=== PATIENT | female | born 1965 | race American Indian/Alaskan Native ===

== ENCOUNTER 2019-05-20 23:11 | Emergency (ER) | payer SELFPAY ==
[2019-05-21 00:05] LABS: Basophils # (Auto) 0.1 K/mm3 (0.0-0.1); Basophils % (Auto) 1.2 % (0.0-1.8); Eosinophils # (Auto) 0.1 K/mm3 (0.0-0.4); Eosinophils % (Auto) 1.3 % (0.0-4.3); Hematocrit 46.1 % (30.3-42.9); Hemoglobin 16.3 gm/dl (10.1-14.3); Lymphocytes # (Auto) 2.2 K/mm3 (1.2-5.4); Lymphocytes % (Auto) 45.7 % (13.4-35.0); Mean Corpuscular HGB Conc 35 % (30-34); Mean Corpuscular Volume 102 fl (79-97); Monocytes # (Auto) 0.3 K/mm3 (0.0-0.8); Monocytes % (Auto) 5.5 % (0.0-7.3); Platelet Count 269 K/mm3 (140-440); Red Blood Count 4.51 M/mm3 (3.65-5.03); Red Cell Distribution Width 14.4 % (13.2-15.2)
[2019-05-21 00:20] LABS: Alanine Aminotransferase 8 units/L (7-56); BUN/Creatinine Ratio 10; Blood Urea Nitrogen 6 mg/dL (7-17); Calcium 9.5 mg/dL (8.4-10.2); Hemolysis Index 6
[2019-05-21] MEDS ORDERED: DICYCLOMINE 20 MG/2 ML INJ IM ONE (01:52)
[2019-05-21] MEDS ORDERED: FAMOTIDINE 20 MG/2 ML INJ IV ONE (01:52)
[2019-05-21] MEDS ORDERED: SODIUM CHLORIDE 0.9% 1000 ML 1,000 ML IV ONE (01:52)
[2019-05-21] MEDS ORDERED: ONDANSETRON 4 MG/2 ML INJ IV ONE (01:52)
--- NOTE | 2019-05-21 03:44 | Emergency Department Report ---
ED Abdominal Pain HPI - General Chief Complaint: Abdominal Pain Stated Complaint: ABD PAIN Time Seen by Provider: 05/21/19 01:43 Source: patient Mode of arrival: Ambulatory Limitations: No Limitations - History of Present Illness Initial Comments: Patient is a 53-year-old female with a past medical history of ulcers and borderline diabetes who is presenting with nausea vomiting and epigastric discomfort. Patient states that she is unable to keep anything the last 2 days but has had the abdominal discomfort for approximately a week. Patient states pain is consistent with her ulcers. She denies diarrhea fevers chills cough, congestion at this time. Severity scale (0 -10): 7 - Related Data Home Medications Medication Instructions Recorded Confirmed Last Taken Famotidine [Pepcid] 20 mg PO BID 03/20/16 03/20/16 Unknown Previous Rx's Medication Instructions Recorded Last Taken Type Metoprolol [Lopressor TAB] 50 mg PO BID #60 tablet 03/20/16 Unknown Rx Potassium Chloride [K-Dur] 20 meq PO QDAY #14 tablet 03/20/16 Unknown Rx Promethazine [Phenergan TAB] 25 mg PO Q6HR PRN #14 tab 03/20/16 Unknown Rx Dicyclomine [Bentyl] 20 mg PO QID #10 tablet 05/21/19 Unknown Rx Ondansetron [Zofran Odt] 4 mg PO Q8HR #10 tab.rapdis 05/21/19 Unknown Rx Pantoprazole [Protonix] 40 mg PO QDAY #30 tablet 05/21/19 Unknown Rx traMADol [Ultram] 50 mg PO Q6HR PRN #12 tablet 05/21/19 Unknown Rx Allergies Allergy/AdvReac Type Severity Reaction Status Date / Time Penicillins Allergy Angioedema Verified 03/20/16 01:01 Sulfa (Sulfonamide Allergy Angioedema Verified 03/20/16 01:01 Antibiotics) ED Review of Systems ROS: Stated complaint: ABD PAIN Other details as noted in HPI Comment: All other systems reviewed and negative ED Past Medical Hx - Past Medical History Previous Medical History?: Yes Hx Diabetes: Yes (Borderline) Hx GERD: Yes Additional medical history: PUD, Esophageal Atresia - Surgical History Past Surgical History?: Yes Additional Surgical History: Esophageal Atresia Repair - Social History Smoking Status: Current Every Day Smoker Substance Use Type: Alcohol, Marijuana - Medications Home Medications: Home Medications Medication Instructions Recorded Confirmed Last Taken Type Famotidine [Pepcid] 20 mg PO BID 03/20/16 03/20/16 Unknown History Metoprolol [Lopressor TAB] 50 mg PO BID #60 tablet 03/20/16 Unknown Rx Potassium Chloride [K-Dur] 20 meq PO QDAY #14 tablet 03/20/16 Unknown Rx Promethazine [Phenergan TAB] 25 mg PO Q6HR PRN #14 tab 03/20/16 Unknown Rx Dicyclomine [Bentyl] 20 mg PO QID #10 tablet 05/21/19 Unknown Rx Ondansetron [Zofran Odt] 4 mg PO Q8HR #10 tab.rapdis 05/21/19 Unknown Rx Pantoprazole [Protonix] 40 mg PO QDAY #30 tablet 05/21/19 Unknown Rx traMADol [Ultram] 50 mg PO Q6HR PRN #12 tablet 05/21/19 Unknown Rx ED Physical Exam - General Limitations: No Limitations General appearance: alert, in no apparent distress - Head Head exam: Present: atraumatic, normocephalic - Eye Eye exam: Present: normal appearance - ENT ENT exam: Present: mucous membranes moist - Neck Neck exam: Present: normal inspection - Respiratory Respiratory exam: Present: normal lung sounds bilaterally. Absent: respiratory distress, wheezes, rales, rhonchi - Cardiovascular Cardiovascular Exam: Present: regular rate, normal rhythm. Absent: systolic murmur, diastolic murmur, rubs, gallop - GI/Abdominal GI/Abdominal exam: Present: soft, tenderness (epigastric), normal bowel sounds. Absent: distended, guarding, rebound, rigid - Extremities Exam Extremities exam: Present: normal inspection - Back Exam Back exam: Present: normal inspection - Neurological Exam Neurological exam: Present: alert, oriented X3 - Psychiatric Psychiatric exam: Present: normal affect, normal mood - Skin Skin exam: Present: warm, dry, intact, normal color. Absent: rash ED Course Vital Signs 05/20/19 05/21/19 23:20 02:15 Temperature 98.6 F 98.2 F Pulse Rate 78 68 Respiratory 18 16 Rate Blood Pressure 159/113 Blood Pressure 165/108 [Right] O2 Sat by Pulse 96 100 Oximetry ED Medical Decision Making - Lab Data Result diagrams: 05/20/19 23:40 05/20/19 23:40 Lab Results 05/20/19 05/20/19 05/20/19 Range/Units 23:33 23:40 23:40 WBC 4.8 (4.5-11.0) K/mm3 RBC 4.51 (3.65-5.03) M/mm3 Hgb 16.3 H (10.1-14.3) gm/dl Hct 46.1 H (30.3-42.9) % MCV 102 H (79-97) fl MCH 36 H (28-32) pg MCHC 35 H (30-34) % RDW 14.4 (13.2-15.2) % Plt Count 269 (140-440) K/mm3 Lymph % (Auto) 45.7 H (13.4-35.0) % [place] % (Auto) 5.5 (0.0-7.3) % Eos % (Auto) 1.3 (0.0-4.3) % Baso % (Auto) 1.2 (0.0-1.8) % Lymph # 2.2 (1.2-5.4) K/mm3 [place] # 0.3 (0.0-0.8) K/mm3 Eos # 0.1 (0.0-0.4) K/mm3 Baso # 0.1 (0.0-0.1) K/mm3 Seg Neutrophils % 46.3 (40.0-70.0) % Seg Neutrophils # 2.2 (1.8-7.7) K/mm3 Sodium 139 (137-145) mmol/L Potassium 3.5 L (3.6-5.0) mmol/L Chloride 104.0 (98-107) mmol/L Carbon Dioxide 24 (22-30) mmol/L Anion Gap 15 mmol/L BUN 6 L (7-17) mg/dL Creatinine 0.6 L (0.7-1.2) mg/dL Estimated GFR > 60 ml/min BUN/Creatinine Ratio 10 % Glucose 114 H (65-100) mg/dL POC Glucose 94 (70-105) Calcium 9.5 (8.4-10.2) mg/dL Total Bilirubin 0.40 (0.1-1.2) mg/dL AST 17 (5-40) units/L ALT 8 (7-56) units/L Alkaline Phosphatase 70 (35-129) units/L Total Protein 7.5 (6.3-8.2) g/dL Albumin 4.0 (3.9-5) g/dL Albumin/Globulin Ratio 1.1 % - Medical Decision Making Was hydrated given antiemetics and she'll be referred to gastroenterology. Patient's given medication for symptomatic relief as an outpatient. Critical care attestation.: If time is entered above; I have spent that time in minutes in the direct care of this critically ill patient, excluding procedure time. ED Disposition Clinical Impression: Gastritis Qualifiers: Gastritis type: unspecified gastritis Chronicity: acute Gastritis bleeding: without bleeding Qualified Code(s): K29.00 - Acute gastritis without bleeding Nausea & vomiting Qualifiers: Vomiting type: unspecified Vomiting Intractability: non-intractable Qualified Code(s): R11.2 - Nausea with vomiting, unspecified Disposition: DC-01 TO HOME OR SELFCARE Is pt being admited?: No Does the pt Need Aspirin: No Condition: Stable Instructions: Abdominal Pain (ED), Gastritis (ED) Referrals: [facility] [Provider Group] - 3-5 Days Time of Disposition: 03:44
[2019-05-21 04:46] VITALS: BP 153/94
== END 2019-05-21 04:46 | disposition home or self-care (01) ==
LOC: ED 23:11
DX: K29.70 Gastritis, unspecified, without bleeding (principal); K21.9 Gastro-esophageal reflux disease without esophagitis; E11.9 Type 2 diabetes mellitus without complications; F17.200 Nicotine dependence, unspecified, uncomplicated; F12.10 Cannabis abuse, uncomplicated; Z79.899 Other long term (current) drug therapy; Z88.0 Allergy status to penicillin; Z88.2 Allergy status to sulfonamides
CPT/HCPCS: 36415; 80053; 82962; 85025; 96361; 96372; 96374; 96375; 99283; J0500; J2405; J7030